=== PATIENT | female | born 1970 | race Caucasian/White ===

== ENCOUNTER 2016-07-05 14:40 | Observation (INO) ==
[2016-07-05] MEDS ORDERED: CefTRIAXone 1,000 MG in D5% in Water (Mini-Bag+) 100 ML IVPB STA (14:53)
[2016-07-05] MEDS ORDERED: Azithromycin 500 MG in D5% in Water 250 ML IVPB ONE (14:53)
--- NOTE | 2016-07-05 14:55 | Emergency Department Note ---
Disposition Clinical Impression: Community acquired pneumonia Disposition: Admitted As Inpatient Condition: Fair Referrals: NO,PCP [Primary Care Provider] - Forms: ED Satisfaction Letter Time of Disposition: 16:26 (obsv paulino) SOB HPI - General Chief Complaint: ED Shortness of Breath/Dyspnea Stated Complaint: shortness of breath Time Seen by Provider: 07/05/16 14:48 Source: patient Mode of arrival: ambulatory Limitations: no limitations Nursing Notes Reviewed: Yes Vital Signs Reviewed: Yes - History of Present Illness Patient 46 years old seen at local urgent care was diagnosed with pneumonia sent to the ER because she continued remain hypoxic at the facility patient states that she has had fever chills cough congestion shortness of breath she has had no calf pain no swelling no edema noted no diarrhea melena hematochezia dyspnea with activity dyspnea with exertion Pt Subjective Complaint: shortness of breath, cough Onset (ago): day(s) Context: recent illness Severity: moderate Consistency/Duration: constant, gradually worsening Improves with: nothing Worsens with: exertion, movement Associated symptoms: Reports: chest pain, fever, cough, wheezing, sputum production. Denies: pain with inspiration, orthopnea, lower extremity pain, polyuria, polydipsia, parasthesias, palpitations, hemoptysis, diaphoresis, nausea/vomiting, syncope, abdominal pain, sense of impending doom Treatment prior to arrival: oxygen, bronchodilator Cough present: No Cough Description: Involuntary, Productive, Weak Cough Frequency: Continuous Sputum Amount: Small Sputum Color: Cream - Related Data Allergies Allergy/AdvReac Type Severity Reaction Status Date / Time Penicillins Allergy Hives Verified 06/18/16 19:08 All systems ED: reviewed and negative except as stated. Constitutional: Reports: fever, weakness. Denies: chills Eyes: Denies: eye pain, eye discharge ENT ED: Reports: throat pain, congestion. Denies: ear pain Cardiovascular: Denies: chest pain, palpitations, dyspnea on exertion Respiratory: Reports: cough, dyspnea, wheezes, sputum production Gastrointestinal: Denies: abdominal pain, nausea, vomiting Genitourinary: Denies: urgency, dysuria, frequency Musculoskeletal: Denies: back pain, neck pain, joint swelling Integumentary: Denies: abrasion, lesions Neurological: Denies: headache, weakness Psychiatric: Denies: anxiety, depression Endocrine: Denies: fatigue Hematological/Lymphatic: Denies: easy bleeding Allergic/Immunologic: Denies: facial swelling Past Medical History - Past Medical History Attestation: Yes The following information was validated with the patient. Source: patient, old records reviewed, nursing notes reviewed Medical history: Reports: no medical history, other Psychiatric history: Reports: bipolar - Social History Smoking Status: Former smoker Smokeless Tobacco Status: No Alcohol use: Reports: none Drug use: Reports: none Physical Exam - General Limitations: no limitations General appearance: alert, in no apparent distress, anxious - Head Head exam: atraumatic, normocephalic, normal inspection - Eye Eye exam: Present: normal appearance, PERRL, EOMI - ENT ENT exam: normal exam, normal oropharynx, mucous membranes moist, normal external ear exam - Neck Neck exam: Present: normal inspection, full ROM, trachea midline - Chest Chest inspection: Present: normal inspection, symmetric chest wall rise - Respiratory Respiratory exam: Present: wheezes, accessory muscle use, prolonged expiratory phase - Cardiovascular Cardiovascular exam: Present: regular rate, normal rhythm, normal heart sounds - Abdominal Exam Abdominal exam: Present: soft, Non-Tender, normal bowel sounds. Absent: mass, pulsatile mass - Extremities Exam Extremities exam: Present: normal inspection, full ROM, normal capillary refill. Absent: tenderness, joint swelling - Back Exam Back exam: Present: normal inspection, full ROM. Absent: muscle spasm - Neurological Exam Neurological exam: Present: alert, oriented X3, CN II-XII intact - Psychiatric Psychiatric exam: Present: normal affect, normal mood - Skin Skin exam: Present: warm, dry, intact, normal color Course Course Narrative: Patient seen and examined chest x-ray laboratory data obtained patient was given fluid boluses but blood pressure was normalized after taking the patient' s sweatshirt off to take the blood pressure Vital Signs Temperature 98.9 F 07/05/16 14:43 Pulse Rate 130 07/05/16 14:43 Respiratory Rate 18 07/05/16 14:43 Blood Pressure 99/58 07/05/16 14:43 O2 Sat by Pulse Oximetry 95 07/05/16 14:43 Temperature 98.9 F 07/05/16 14:43 Pulse Rate 130 07/05/16 14:43 Respiratory Rate 18 07/05/16 14:43 Blood Pressure 99/58 07/05/16 14:43 O2 Sat by Pulse Oximetry 95 07/05/16 14:43 Oxygen Delivery Oxygen Delivery Room Air Shortness of Breath/Dyspnea - Differential Diagnosis Likely: acute exacerbation of chronic obstructive airways disease, pneumonia - Medical Records Medical records reviewed: Yes I reviewed the patient's medical records. - Lab Data Lab results reviewed: Yes I reviewed the patient's lab results. Result diagrams: 07/05/16 15:17 07/05/16 15:17 Lab Results 07/05/16 07/05/16 07/05/16 Range/Units 15:17 15:17 15:17 WBC 12.0 H (4.3-11.1) K/mcL RBC 4.01 (3.82-4.97) M/mcL Hgb 11.4 L (11.5-15.4) g/dL Hct 33.8 L (35.3-44.9) % MCV 84.3 (83.0-100.0) fL MCH 28.4 (28.0-33.3) pg MCHC 33.7 (31.6-35.5) g/dL RDW 13.8 (11.5-14.5) % Plt Count 215 (140-400) K/mcL MPV 9.5 (9.4-12.4) fL Immature Gran % 0.8 (0-4) % Seg Neutrophils % 83.1 % Lymphocytes % 5.8 % Monocytes % 10.0 % Eosinophils % 0.1 % Basophils % 0.2 % Neutrophils # 10.0 H (1.6-8.9) K/mcL Lymphocytes # 0.7 (0.6-4.6) K/mcL Monocytes # 1.2 (0.0-1.3) K/mcL Eosinophils # 0.0 (0.0-0.6) K/mcL Basophils # 0.0 (0.0-0.2) K/mcL PT 16.0 H (9.4-12.1) Seconds INR 1.5 APTT 31.9 (26.0-36.0) Seconds Sodium 135 L (136-145) mEq/L Potassium 3.4 L (3.5-4.5) mEq/L Chloride 100 (98-109) mEq/L Carbon Dioxide 19 (19-29) mEq/L BUN 16 (7-20) mg/dL Creatinine 0.97 (0.57-1.11) mg/dL Est GFR ( Amer) > 60 (> 60) Est GFR (Non-Af Amer) > 60 (> 60) BUN/Creatinine Ratio 16 (6-26) Glucose 122 H (70-99) mg/dL Calculated Osmolality 282 (280-300) Calcium 9.5 (8.6-10.8) mg/dL Troponin I (0-0.03) ng/mL Urine Color (Yellow) Urine Clarity (Clear) Urine pH (5.0-8.0) pH Units Ur Specific Gallant (1.010-1.025) Urine Protein (Neg-Trace) mg/dL Urine Glucose (UA) (Normal) mg/dL Urine Ketones (Negative) mg/dL Urine Blood (Negative) Urine Nitrite (Negative) Urine Bilirubin (Negative) Urine Urobilinogen (Normal) mg/dL Ur Leukocyte Esterase (Negative) Urine Microscopic RBC (0-3) per hpf Urine Microscopic WBC (0-3) per hpf Ur Squamous Epith Cells (None-Few) per lpf Amorphous Sediment (Few) Urine Bacteria (None-Few) per hpf Hyaline Casts (None-Few) per lpf Granular Casts (None Seen) per lpf Urine Mucus (Few) Ur Culture Indicated? (NO) 07/05/16 07/05/16 Range/Units 15:17 16:00 WBC (4.3-11.1) K/mcL RBC (3.82-4.97) M/mcL Hgb (11.5-15.4) g/dL Hct (35.3-44.9) % MCV (83.0-100.0) fL MCH (28.0-33.3) pg MCHC (31.6-35.5) g/dL RDW (11.5-14.5) % Plt Count (140-400) K/mcL MPV (9.4-12.4) fL Immature Gran % (0-4) % Seg Neutrophils % % Lymphocytes % % Monocytes % % Eosinophils % % Basophils % % Neutrophils # (1.6-8.9) K/mcL Lymphocytes # (0.6-4.6) K/mcL Monocytes # (0.0-1.3) K/mcL Eosinophils # (0.0-0.6) K/mcL Basophils # (0.0-0.2) K/mcL PT (9.4-12.1) Seconds INR APTT (26.0-36.0) Seconds Sodium (136-145) mEq/L Potassium (3.5-4.5) mEq/L Chloride (98-109) mEq/L Carbon Dioxide (19-29) mEq/L BUN (7-20) mg/dL Creatinine (0.57-1.11) mg/dL Est GFR ( Amer) (> 60) Est GFR (Non-Af Amer) (> 60) BUN/Creatinine Ratio (6-26) Glucose (70-99) mg/dL Calculated Osmolality (280-300) Calcium (8.6-10.8) mg/dL Troponin I 0.00 (0-0.03) ng/mL Urine Color Dark Yellow (Yellow) Urine Clarity Cloudy A (Clear) Urine pH 5.5 (5.0-8.0) pH Units Ur Specific Gallant 1.025 (1.010-1.025) Urine Protein >=300 H (Neg-Trace) mg/dL Urine Glucose (UA) Normal (Normal) mg/dL Urine Ketones 15 H (Negative) mg/dL Urine Blood Trace-lysed H (Negative) Urine Nitrite Negative (Negative) Urine Bilirubin Moderate H (Negative) Urine Urobilinogen 2.0 H (Normal) mg/dL Ur Leukocyte Esterase Trace H (Negative) Urine Microscopic RBC 0-3 (0-3) per hpf Urine Microscopic WBC 5-15 H (0-3) per hpf Ur Squamous Epith Cells Many H (None-Few) per lpf Amorphous Sediment Moderate H (Few) Urine Bacteria Moderate H (None-Few) per hpf Hyaline Casts Moderate H (None-Few) per lpf Granular Casts Many H (None Seen) per lpf Urine Mucus Moderate H (Few) Ur Culture Indicated? YES A (NO) - Radiology Data Radiology results reviewed: Yes I reviewed the patient's radiology results. ITS Impressions Chest X-Ray 07/05/16 14:52 IMPRESSION: Bilateral infiltrates. No pleural fluid. D/ / 07/05/2016 16:02:20 Lakeisha Godoy MD / maisha Interpreting Provider: Lakeisha Godoy MD - EKG Data EKG attestation: Yes I reviewed and interpreted this EKG. EKG results narrative: Sinus tach 128 rate 92 NH 81 QRS 348 axis XXXV Critical Care Time Critical Care Time: Yes Total Critical Care Time: 35 Attestation: Critical care performed: 35 minutes with patient appears to be an underlying pneumonia sent from urgent care with the patient being tachycardic and also hypotensive initially but also concerns for her being septic patient's blood pressure was rechecked after she had taken her sweatshirt off and her blood pressure was normal in addition to this will also have to be concerned about the fact that the patient has hypoxia she was a 2 requiring only holding her sats of 94% on [address] Wahl's agreed for admission transferred to [facility] Time is exclusive of separately billable procedures. Time includes: direct patient care, patient reassessment, coordination of patient care, interpretation of data (laboratory data, radiology data, and respiratory data), review of patient's medical records, medical consultation and documentation of patient care. Procedures included in critical care time: Procedures excluded from critical care time:
[2016-07-05] MEDS ORDERED: 0.9 % Sodium Chloride 1,000 ML IVC SCH (15:00)
[2016-07-05 15:22] LABS: Basophils % 0.2 %; Eosinophils % 0.1 %; Hematocrit 33.8 % (35.3-44.9); Hemoglobin 11.4 g/dL (11.5-15.4); Immature Granulocytes % 0.8 % (0-4); Lymphocytes # 0.7 K/mcL (0.6-4.6); Lymphocytes % 5.8 %; Mean Corpuscular HGB Conc 33.7 g/dL (31.6-35.5); Mean Corpuscular Hemoglobin 28.4 pg (28.0-33.3); Mean Corpuscular Volume 84.3 fL (83.0-100.0); Mean Platelet Volume 9.5 fL (9.4-12.4); Monocytes # 1.2 K/mcL (0.0-1.3); Platelet Count 215 K/mcL (140-400); Red Blood Count 4.01 M/mcL (3.82-4.97); Red Cell Distribution Width 13.8 % (11.5-14.5); Segmented Neutrophils % 83.1 %
[2016-07-05 15:29] LABS: INR 1.5
[2016-07-05 15:31] LABS: Activated Partial Thrombo Time 31.9 Seconds (26.0-36.0)
[2016-07-05 15:36] LABS: BUN/Creatinine Ratio 16 (6-26); Blood Urea Nitrogen 16 mg/dL (7-20); Calcium 9.5 mg/dL (8.6-10.8); Carbon Dioxide 19 mEq/L (19-29); Chloride 100 mEq/L (98-109); Glucose 122 mg/dL (70-99); Osmolality,Calculated 282 (280-300); Potassium 3.4 mEq/L (3.5-4.5); Sodium 135 mEq/L (136-145); eGFR For African Americans > 60 (> 60); eGFR For Non-African Americans > 60 (> 60)
[2016-07-05 16:12] LABS: Bilirubin,Urine Moderate (Negative); Blood,Urine Trace-lysed (Negative); Clarity,Urine Cloudy (Clear); Color,Urine Dark Yellow (Yellow); Glucose,Urine (UA) Normal (Normal); Ketones,Urine 15 mg/dL (Negative); Leukocyte Esterase,Urine Trace (Negative); Nitrite,Urine Negative (Negative); PH,Urine 5.5 pH Units (5.0-8.0); Protein,Urine >=300 mg/dL (Neg-Trace); Specific Gravity,Urine 1.025 (1.010-1.025)
[2016-07-05 16:22] LABS: Amorphous Sediment,Urine Moderate (Few); Bacteria,Urine Moderate per hpf (None-Few); Granular Casts,Urine Many per lpf (None Seen); Hyaline Casts,Urine Moderate per lpf (None-Few); Mucus,Urine Moderate (Few); RBC,Urine 0-3 per hpf (0-3); Squamous Epithelial Cell,Urine Many per lpf (None-Few)
[2016-07-05] MEDS ORDERED: 0.9 % Sodium Chloride 1,000 ML IVC ONE (16:33)
[2016-07-05] MEDS ORDERED: Ibuprofen 400 MG TABLET PO PRN (18:54)
[2016-07-05] MEDS ORDERED: Naloxone 0.4 MG/ML INJ IVP PRN (18:54)
[2016-07-05] MEDS: FLUoxetine 20 MG CAPSULE PO SCH (21:27)
[2016-07-05] MEDS: Acetaminophen 325 MG TABLET PO PRN (21:27)
[2016-07-05] MEDS: 0.9 % Sodium Chloride 1,000 ML IVC SCH ×2 (21:38→23:58)
[2016-07-06 06:06] LABS: Basophils % 0.3 %; Eosinophils # 0.1 K/mcL (0.0-0.6); Eosinophils % 1.6 %; Hematocrit 34.4 % (35.3-44.9); Hemoglobin 11.3 g/dL (11.5-15.4); Lymphocytes # 0.7 K/mcL (0.6-4.6); Lymphocytes % 7.6 %; Mean Corpuscular HGB Conc 32.8 g/dL (31.6-35.5); Mean Corpuscular Hemoglobin 28.2 pg (28.0-33.3); Mean Corpuscular Volume 85.8 fL (83.0-100.0); Mean Platelet Volume 10.5 fL (9.4-12.4); Monocytes % 11.4 %; Platelet Count 201 K/mcL (140-400); Red Blood Count 4.01 M/mcL (3.82-4.97); Red Cell Distribution Width 13.8 % (11.5-14.5); Segmented Neutrophils % 78.1 %
[2016-07-06 06:43] LABS: BUN/Creatinine Ratio 18 (6-26); Blood Urea Nitrogen 14 mg/dL (7-20); Calcium 8.9 mg/dL (8.6-10.8); Carbon Dioxide 23 mEq/L (19-29); Chloride 106 mEq/L (98-109); Glucose 103 mg/dL (70-99); Osmolality,Calculated 293 (280-300); Potassium 3.6 mEq/L (3.5-4.5); Sodium 141 mEq/L (136-145); eGFR For African Americans > 60 (> 60); eGFR For Non-African Americans > 60 (> 60)
[2016-07-06] MEDS: FLUoxetine 20 MG CAPSULE PO SCH ×2 (09:01→19:41)
[2016-07-06] MEDS: Albuterol 2.5 MG/3 ML NEBULIZER IH PRN ×2 (10:44→15:38)
[2016-07-06] MEDS: 0.9 % Sodium Chloride 1,000 ML IVC SCH (11:40)
--- NOTE | 2016-07-06 12:15 | Internal Med History&Physical ---
Date of Encounter: 07/06/16 Time of Encounter: 11:45 Assessment and Plan (1) Community acquired pneumonia Current visit: Yes Status: Acute Continue Rocephin and Zithromax started in the emergency room. We will order lactobacillus. Room air oximetry be checked in a.m. (2) Hypokalemia Current visit: Yes Status: Acute We will give supplemental potassium and recheck labs in a.m. (3) Anemia Current visit: Yes Status: Acute We will order anemia testing in a.m. Qualifiers: Anemia type: unspecified type Qualified Code(s): D64.9 - Anemia, unspecified Internal Medicine - H&P: HPI Chief complaint: Pneumonia Admitted From: Home Plans for Post Hospital Care: Home History of present illness: Ms. Trejo is a 46 year old female who was sent from a local urgent care to the emergency room because of dyspnea which had been present for 3 days. She states she has a cough which is minimally productive. Evaluation in emergency room showed probable bilateral pneumonia on chest x-ray. She was admitted to [facility] floor for ongoing care needs. She denies previous pneumonia. She states she smoked from age [age] up to 3 packs per day. She has not had PFTs and does not wear home oxygen. She denies evaluation for LIZ. Past Med Surg Social Fam HX - Past Medical History Medical history: no medical history, other Psychiatric history: bipolar - Past Surgical History Surgical History: hysterectomy - Social History Smoking Status: Former smoker Smokeless Tobacco Status: No Alcohol use: none Drug use: none Internal Medicine - H&P: Meds FLUoxetine HCl [PROzac] 20 mg PO BID 07/05/16 [History] Levothyroxine [Synthroid] 75 mcg PO 0630 07/05/16 [History] Prazosin [Minipress] 1 mg PO HS 07/05/16 [History] Quetiapine Fumarate [Seroquel] 200 mg PO HS 07/05/16 [History] Simvastatin [Zocor] 20 mg PO HS 07/05/16 [History] Allergies Penicillins Allergy (Verified 06/18/16 19:08) Hives All Systems PM: A 10-system review of systems was performed and is negative for pertinent findings except as documented above in the HPI. Review of systems: General: She states her weight has been stable the past few months Cardiovascular: She denies hypertension GA heart failure angina DVT or pulmonary embolus Respiratory: As per history of present illness GI: She denies disorders of her liver gallbladder or exocrine pancreas : She denies hematuria or dysuria or kidney stones Neurologic: She denies large distribution strokes or seizures. Endocrine: She denies diabetes thyroid disease or hyperlipidemia Hematology/oncology: She was found to have mild anemia in emergency room. She was unaware of this. She denies internal malignancies. Psychiatric: She has a diagnosis of bipolar disorder. She is uncertain if she takes medication for this. Musk skeletal: She denies arthritis gout or other bone joint or muscle disorders. - Constitutional Vitals: Temp Pulse Resp BP Pulse Ox 98.5 F 115 16 126/72 94 07/06/16 11:20 07/06/16 11:20 07/06/16 11:20 07/06/16 11:20 07/06/16 11:20 Exam: Gen.: She is well-developed well-nourished female appears in minimal distress at present time. HEENT: Head is atrophic and normocephalic. Eyes: EOMI. There is no scleral icterus. Mouth: Mucosa is moist. Neck: Supple and nontender. There is no thyromegaly or adenopathy noted. Heart: Regular without murmurs gallops or ectopics. Lungs: No wheezes or crackles are heard. Abdomen: Soft and nontender. No masses or guarding are noted. Extremities: There is no cyanosis edema or clubbing noted. Dorsalis pedis and posterior tibial pulses are trace to 1+ palpable bilaterally. Neurologic: Mental status: She is talkative but a fair historian. She does not know some details of her history. She does not know her medications or their indications or which pharmacy she uses. Cranial nerves: Smile is symmetric. Forehead wrinkles bilaterally. Tongue protrudes midline. EOMI. Motor: There is no pronator drift. Cerebellar: Finger to nose is intact bilaterally. Skin: Warm and dry Internal Med - H&P Results - Labs CBC & Chem 7: 07/06/16 05:00 07/06/16 05:00 Labs: Short CBC 07/06/16 Range/Units 05:00 WBC 9.0 (4.3-11.1) K/mcL Hgb 11.3 L (11.5-15.4) g/dL Hct 34.4 L (35.3-44.9) % Plt Count 201 (140-400) K/mcL Neutrophils # 7.0 (1.6-8.9) K/mcL BMP 07/06/16 05:00 Sodium 141 Potassium 3.6 Chloride 106 Carbon Dioxide 23 BUN 14 Creatinine 0.78 Glucose 103 H Calcium 8.9
[2016-07-06] MEDS ORDERED: CefTRIAXone 1,000 MG in D5% in Water (Mini-Bag+) 100 ML IVPB SCH (15:00)
[2016-07-06] MEDS ORDERED: Azithromycin 500 MG in D5% in Water 250 ML IVPB SCH (16:00)
[2016-07-06] MEDS: Acetaminophen 325 MG TABLET PO PRN (16:22)
--- NOTE | 2016-07-06 18:20 | Electrocardiograph Report ---
[address] [address] Test Date: 2016-07-05 Pat Name: Kristin Trejo Department: [id number] Room: [facility] Gender: F Lab Clerk: [id number] : 1970 Requested By: Vicenta Rojas Order Number: [id number] Reading MD: Compa Daigle MD Measurements Intervals [place] Rate: 128 P: 6 [place]: 92 QRS: 35 QRSD: 81 T: 2 QT: 348 QTc: 424 Interpretive Statements SINUS TACHYCARDIA WITH SHORT WY INTERVAL Electronically Signed On 07-06-2016 18:18:45 EDT by Compa Daigle MD
[2016-07-07] MEDS: Acetaminophen 325 MG TABLET PO PRN ×2 (00:32→08:05)
[2016-07-07 06:58] LABS: Basophils % 0.3 %; Eosinophils # 0.2 K/mcL (0.0-0.6); Eosinophils % 2.1 %; Hematocrit 32.7 % (35.3-44.9); Hemoglobin 10.8 g/dL (11.5-15.4); Immature Granulocytes % 2.9 % (0-4); Lymphocytes # 1.3 K/mcL (0.6-4.6); Lymphocytes % 11.6 %; Mean Corpuscular Hemoglobin 28.1 pg (28.0-33.3); Mean Corpuscular Volume 85.2 fL (83.0-100.0); Mean Platelet Volume 10.3 fL (9.4-12.4); Monocytes # 1.6 K/mcL (0.0-1.3); Monocytes % 14.2 %; Neutrophils # 7.9 K/mcL (1.6-8.9); Platelet Count 267 K/mcL (140-400); Red Blood Count 3.84 M/mcL (3.82-4.97); Red Cell Distribution Width 14.4 % (11.5-14.5); Segmented Neutrophils % 68.9 %
[2016-07-07 07:10] LABS: BUN/Creatinine Ratio 10 (6-26); Blood Urea Nitrogen 7 mg/dL (7-20); Carbon Dioxide 23 mEq/L (19-29); Chloride 107 mEq/L (98-109); Chol/HDL Ratio 3.4 (0-4.9); Cholesterol 111 mg/dL (< 200); Glucose 98 mg/dL (70-99); HDL Cholesterol 33 mg/dL (40-59); LDL Cholesterol,Calculated 66 mg/dL (0-99); Osmolality,Calculated 290 (280-300); Potassium 3.8 mEq/L (3.5-4.5); Sodium 141 mEq/L (136-145); Triglycerides 61 mg/dL (< 150); eGFR For African Americans > 60 (> 60); eGFR For Non-African Americans > 60 (> 60)
[2016-07-07 07:20] LABS: Thyroid Stimulating Hormone 1.586 mcIU/mL (0.350-4.840)
[2016-07-07] MEDS: FLUoxetine 20 MG CAPSULE PO SCH (08:00)
[2016-07-07 10:50] LABS: % Iron Saturation 6 % (15-50); Iron 11 mcg/dL (50-170); Transferrin 136 mg/dL (180-382)
[2016-07-07 11:12] LABS: Ferritin 288 ng/ml (5-204)
[2016-07-07 11:26] LABS: Folate 15.8 ng/mL (7.0-31.4)
--- NOTE | 2016-07-07 11:39 | Discharge Summary ---
Date of Encounter: 07/07/16 Time of Encounter: 11:25 - Discharge Diagnosis (1) Community acquired pneumonia Priority: Primary Status: Acute (2) Hypokalemia Priority: Secondary Status: Resolved (3) Anemia Priority: Secondary Status: Acute Qualifiers: Anemia type: iron deficiency Iron deficiency anemia type: unspecified iron deficiency Qualified Code(s): D50.9 - Iron deficiency anemia, unspecified - Discharge Medications Prescriptions: Cefuroxime PO [Ceftin] 500 mg PO Q12HR #8 tablet Ascorbic Acid [Vitamin C] 500 mg PO DAILY #30 tablet.er Azithromycin [Zithromax] 250 mg PO DAILY #4 tablet Ferrous Sulfate 325 mg PO DAILY #30 tablet.dr Menon [Culturelle] 1 each PO BID #8 cap.sprink Potassium Chloride 10 meq PO BIDWM #60 tab.er.prt Home Medications: FLUoxetine HCl [Prozac] 20 mg PO BID 07/05/16 [History] Levothyroxine [Synthroid] 75 mcg PO 0630 07/05/16 [History] Quetiapine Fumarate [Seroquel] 200 mg PO HS 07/05/16 [History] Simvastatin [Zocor] 20 mg PO HS 07/05/16 [History] Ascorbic Acid [Vitamin C] 500 mg PO DAILY #30 tablet.er 07/07/16 [Rx] Azithromycin [Zithromax] 250 mg PO DAILY #4 tablet 07/07/16 [Rx] Cefuroxime PO [Ceftin] 500 mg PO Q12HR #8 tablet 07/07/16 [Rx] Ferrous Sulfate 325 mg PO DAILY #30 tablet. 07/07/16 [Rx] Lactobacillus [Culturelle] 1 each PO BID #8 cap.sprink 07/07/16 [Rx] Potassium Chloride 10 meq PO BIDWM #60 tab.er.prt 07/07/16 [Rx] Allergies/Adverse Reactions: Allergies Penicillins Allergy (Verified 06/18/16 19:08) Hives Date of admission: 07/05/16 16:41 Primary care physician: PCP NO - Patient Status Disposition: Home, Self-Care Condition: Fair Overall status at discharge: patient is progressing back to baseline - Discharge Instructions Follow Up With: NO,PCP [Primary Care Provider] - 1 week - Diet and Activity Activity: resume usual activities as tolerated Diet: advance to your usual diet Hospital course: Ms. Trejo is a 46 year old female who was sent from a local urgent care to the emergency room because of dyspnea which had been present for 3 days. She states she has a cough which is minimally productive. Evaluation in emergency room showed probable bilateral pneumonia on chest x-ray. She was admitted to [facility] for ongoing care needs. Initial orders were written by the emergency room physician. I saw her on July 06 and performed the history and physical. She was started on Rocephin, Zithromax, and lactobacillus. She had clinical improvement and remained afebrile during her hospital stay. She will continue on oral antibiotic and probiotic for 4 additional days after discharge. Hypokalemia resolved with administration of supplemental potassium. This will be continued at discharge. Anemia testing showed iron 11, transferrin saturation 6%, and ferritin 288. B12 and folate were normal. She will the given ferrous sulfate with vitamin C at discharge. There were no new problems otherwise and on July 07 she felt she was stable for discharge home. She will follow with her PCP within one week. - Time Spent with Patient Total time spent providing and/or coordinating discharge services: - Constitutional Vitals: Temp Pulse Resp BP Pulse Ox 98.2 F 101 16 113/76 94 07/07/16 06:51 07/07/16 06:51 07/07/16 06:51 07/07/16 06:51 07/07/16 06:51
[2016-07-07 11:46] VITALS: BP 124/62
== END 2016-07-07 15:41 | disposition home or self-care (01) ==
LOC: EMEROOPIK 14:40 → INPPIK 14:40
PROVIDERS: ADMIT Internal Medicine; ATTEND Internal Medicine